=== PATIENT | male | born 1995 | race Asian ===

== ENCOUNTER → 2016-09-25 | Outpatient (CLI) | payer OTHER ==
--- NOTE | 2016-09-25 19:09 | DIAGNOSTIC IMAGING REPORT ---
MRI LEFT KNEE NO CONTRAST CLINICAL HISTORY: Postop left knee pain. History of ACL repair in 2016 COMPARISON STUDY: No previous studies for comparison. FINDINGS: Imaging was performed in sagittal, coronal, and axial planes. There are no areas of marrow edema to indicate occult fracture or bone bruise. The quadriceps and patellar tendons appear normal. No meniscal tears are visualized. The posterior cruciate ligament appears normal. There is an ACL graft present. The graft is felt to be intact. There is no evidence of medial or lateral collateral ligament disruption No meniscal tears are visualized. IMPRESSION: 1. Postsurgical changes of an ACL repair. The graft is felt to be intact 2. No evidence of acute internal arrangement Electronically signed by: Babak Castillo M.D. 09/25/2016 7:07 PM Dictated Date/Time: 09/25/2016 7:03 PM
== END | disposition home or self-care (01) ==
LOC: C.MRI 16:50
PROVIDERS: ATTEND Family Medicine
DX: M25.562 Pain in left knee (principal); Z98.890 Other specified postprocedural states

== ENCOUNTER → 2017-01-26 | Outpatient (CLI) | payer OTHER | END | disposition home or self-care (01) | LOC: C.RDSM 17:16 | PROVIDERS: ATTEND Orthopaedic Surgery | DX: M25.562 Pain in left knee (principal) ==

== ENCOUNTER → 2017-07-06 | Outpatient (CLI) | payer OTHER ==
--- NOTE | 2017-07-06 15:05 | DIAGNOSTIC IMAGING REPORT ---
L LOWER EXT JOINT WITHOUT CLINICAL HISTORY: 21 years-old Male presenting with LEFT KNEE PAIN, locking sensation, medial pain, preoperative assessment, history of ACL reconstruction in 2016. TECHNIQUE: Multisequence, multiplanar MR imaging of the left knee was performed without the use of intravenous contrast. IV contrast: None. COMPARISON: 09/25/2016. FINDINGS: Localizer images: Unremarkable. Bone marrow: Normal bone marrow signal intensity. No bony edema. Articular cartilage: Articular cartilage preserved. Menisci: Medial and lateral menisci intact. Cruciate ligaments: Postsurgical changes of anterior cruciate ligament graft. Appropriate orientation of the graft. Expected postsurgical appearance of the femoral and tibial tunnels. Posterior cruciate ligament intact. Collateral ligaments: Medial collateral ligament intact. Lateral collateral ligament complex including the biceps femoris tendon, fibular collateral ligament, popliteal tendon, and iliotibial band intact. Quadriceps and patellar tendons: Quadriceps and patellar tendons intact. Medial and lateral patellar retinacula intact. Joint effusion: No significant knee joint effusion. No popliteal cyst. Muscle: Normal muscle bulk and muscle signal intensity. Superficial soft tissue: No subcutaneous edema. IMPRESSION: Expected postsurgical appearance of ACL graft reconstruction. No postsurgical complication. No new soft tissue abnormality. Electronically signed by: Parker Rangel M.D. 07/06/2017 3:03 PM Dictated Date/Time: 07/06/2017 2:56 PM
== END | disposition home or self-care (01) ==
LOC: C.MRI 13:33
PROVIDERS: ATTEND Physician Assistant
DX: M23.8X2 Other internal derangements of left knee (principal); M25.562 Pain in left knee